=== PATIENT | female | born 1945 | race Caucasian/White ===

== ENCOUNTER 2017-12-08 17:14 | Outpatient (CLI) | payer OTHER | END 2017-12-08 21:17 | disposition home or self-care (01) | LOC: SRD 17:14 | PROVIDERS: ATTEND Internal Medicine | DX: S60.452A Superficial foreign body of right middle finger, initial encounter (principal); X58.XXXA Exposure to other specified factors, initial encounter; Y93.89 Activity, other specified; Y92.89 Other specified places as the place of occurrence of the external cause; Y99.8 Other external cause status | CPT/HCPCS: 73140-TC ==